=== PATIENT | female | born 1935 | race Caucasian/White ===

== ENCOUNTER → 2017-07-22 | Outpatient (CLI) | payer MEDICARE, OTHER ==
[~2017-07-22] MED LIST: AMBIEN 10MG10 MG PO; ASPIRIN 32325 MG/TAB PO; ASPIRIN E.C. 8181 MG PO; BENADRYL25 M2 PO; BONIVA150 MG PO; CALCIUM1 CAP PO; CALCIUM500 MG PO; CHLORASEPTIC 1180 M3 MM; COUMADIN 5MG5 MG/TAB PO; CRESTOR20 MG PO; ELITE MAGNESIUM1 TAB PO; GLUCOSAMINE CHO1 CAP PO; GLUCOSAMINE PO; HALDOL 5MG/ML5 MG/ML IV; IMODIUM A-D2 MG PO; IRON TABLETS325 MG PO; LAXATIVE10 MG RC; LIPITOR 10MG10 MG PO; LOPRESSOR 550 MG/TAB PO; LOPRESSOR100 MG PO; METOPROLOL50 MG PO; MICRO-K 1010 MEQ PO; MILK OF MA400 MG/51 PO; MIRALAX PA17 GM/Dose PO; MUCINEX 60600 MG/TA1 PO; NITROLINGU0.4 MG/ACT SL; NITROQUICK0.4 MG SL; NITROSTAT0.4 MG/TAB SL; NORCO 325 MG-51 TAB PO; PRENATAL VITAMI1 TAB PO; PRENATAL1 TA1 PO; PROTONIX 40MG T40 MG PO; ROXICODONE 55 MG/TAB PO; SENOKOT8.6 MG PO; TOPROL XL 50MG50 MG PO; TUMS500 MG PO; TYLENOL 325MG325 MG PO; ZINC1 GRA; ZITHROMAX Z PA250 MG PO
[2017-07-22 11:04] LABS: ALBUMIN 3.9 gm/dL (3.5-5.0); CALCIUM 8.9 mg/dL (8.4-10.2); CREATININE, serum 0.67 mg/dL (0.52-1.25); POTASSIUM 3.2 mmol/L (3.4-5.0)
[2017-07-22 11:39] LABS: CHOLESTEROL RISK RATIO 6.8; PHOSPHOROUS 3.2 mg/dL (2.5-4.5)
== END ==
LOC: COL.LAB 10:06
PROVIDERS: Family Medicine
DX: Z13.220 Encounter for screening for lipoid disorders (principal); Z13.1 Encounter for screening for diabetes mellitus; I10 Essential (primary) hypertension

== ENCOUNTER 2017-08-29 12:56 | Emergency (ER) | payer MEDICARE, OTHER ==
[~2017-08-29] VITALS: Ht 165.1 cm; Wt 75.0 kg
[2017-08-29] MEDS ORDERED: PRINIVIL20 MG PO (13:21)
[2017-08-29] MEDS ORDERED: PRENATAL1 TA7 PO (13:22)
[2017-08-29] MEDS ORDERED: ASPIRIN 81M81 MG/TA2 PO (13:24)
[2017-08-29 14:05] LABS: BASO % 0.4 % (0.0-2.0); EOS # 0.7 (0.0-0.7); EOS % 7.6 % (0-4.0); GRAN % 73.7 % (42.2-75.2); HEMATOCRIT 37.5 % (37.0-47.0); HEMOGLOBIN 12.4 g/dl (12.5-16.0); LYMPH # 1.2 (1.2-3.4); LYMPH % 12.1 % (20.0-51.0); MEAN CELL VOLUME 86 fl (80.0-100.0); MEAN CORPUSCULAR HEMOGLOBIN 28 pg (27.0-31.0); MEAN CORPUSCULAR HGB CONC 33 g/dl (33.0-37.0); MEAN PLATELET VOLUME 9.6 fl (7.4-10.4); MONO # 0.6 (0.1-0.6); MONO % 5.9 % (1.7-9.3); PLATELET COUNT 253 K/mm3 (130-400); RED BLOOD COUNT 4.37 M/mm3 (4.10-5.30); REDCELL DISTRIBUTION WIDTH-CV 14.6 % (11.5-14.5)
[2017-08-29 14:11] LABS: PROTHROMBIN TIME 11.1 SECONDS (9.7-12.8)
[2017-08-29 14:22] LABS: ALANINE AMINOTRANSFERASE 26 U/L (9-52); ALBUMIN 3.5 gm/dL (3.5-5.0); ALKALINE PHOSPHATASE 100 U/L (50-136); ANION GAP 12 mmol/L (7-16); AST,SGOT 31 U/L (15-37); BILIRUBIN,TOTAL 0.3 mg/dL (0.0-1.0); BLOOD UREA NITROGEN 13 mg/dL (7-17); CALCIUM 8.8 mg/dL (8.4-10.2); CARBON DIOXIDE 27 mmol/L (22-30); CHLORIDE 104 mmol/L (98-107); CREATININE, serum 0.63 mg/dL (0.52-1.25); GLUCOSE 98 mg/dL (74-106); POTASSIUM 3.6 mmol/L (3.4-5.0); SODIUM 143 mmol/L (137-145); TOTAL PROTEIN 6.4 gm/dL (6.4-8.2)
[2017-08-29 14:23] LABS: C-REACTIVE PROTEIN < 0.5 mg/dL (0.0-0.9)
[2017-08-29 14:53] LABS: TROPONIN-I < 0.012 ng/mL (0.000-0.034)
[2017-08-29 18:01] LABS: COLLECTION METHOD CLEAN CATCH
[2017-08-29 18:06] LABS: PH 7 (5-8); SQUAMOUS EPITHELIAL 0-2 /hpf; URINE APPEARANCE Clear; URINE BACTERIA None Seen /hpf; URINE BILIRUBIN Negative (NEGATIVE); URINE BLOOD Negative (NEGATIVE); URINE COLOR Straw; URINE GLUCOSE Negative (NEGATIVE); URINE KETONE Negative (NEGATIVE); URINE LEUKOCYTE ESTERASE Negative (NEGATIVE); URINE NITRATE Negative (NEGATIVE); URINE PROTEIN(semi-quant) Negative (NEGATIVE); URINE RBC 0-2 /hpf; URINE UROBILINOGEN Negative (NEGATIVE)
[2017-08-29] MEDS ORDERED: CLARITIN 1010 MG/TAB PO (18:53)
[2017-08-29] MEDS ORDERED: FLONASE SENSIM9.9 ML NS (18:53)
[2017-08-29 19:00] VITALS: BP 130/86; PULSE 61; TEMP 98
== END 2017-08-29 19:01 | disposition home or self-care (01) ==
LOC: COL.ER 12:56
PROVIDERS: Emergency Medicine
DX: G89.29 Other chronic pain (principal); M54.5 Low back pain; J30.2 Other seasonal allergic rhinitis; R07.2 Precordial pain; I10 Essential (primary) hypertension; Z95.5 Presence of coronary angioplasty implant and graft; Z90.710 Acquired absence of both cervix and uterus; Z90.49 Acquired absence of other specified parts of digestive tract; Z90.89 Acquired absence of other organs; Z98.890 Other specified postprocedural states; Z79.82 Long term (current) use of aspirin
CPT/HCPCS: J1885; J2765; J3010; J7030